=== PATIENT | female | born 1945 | race Caucasian/White ===

== ENCOUNTER 2019-09-08 07:51 | Outpatient (CLI) | payer MEDICARE ==
[2019-09-08] MEDS ORDERED: Iopamidol-370 76% 500 ML 1 ML ONE (09:14)
--- NOTE | 2019-09-08 10:28 | CT ---
CT THORAX WITH CONTRAST: DATE: 09/08/2019 HISTORY: 74-year-old female with ICD-10: "C 34.81 malignant neoplasm of overlapping sites of right bronchus an d lung" COMPARISON: 05/26/2019 CT from [facility] Prior report not available FINDINGS: Multiple mildly enlarged, mediastinal lymph nodes, some heavily calcified and others noncalcified. Th mark include noncalcified lymph nodes of 0.8 cm short axis dimension in the prevascular space, mildly partially calcified lymph node of 1 cm short axis dimension in the precarinal region, and part ially heavily calcified large lymph nodes of subcarinal region, 2.2 cm in AP dimension short axis. Partially heavily calcified enlarged right lymphadenopathy. Noncalcified moderate left hilar lymphade nopathy. These are all essentially unchanged. No thoracic aortic aneurysm or dissection. Incidentally, there is prominent calcified and noncalcifie d atherosclerotic plaque in the limited visualization of proximal abdominal aorta. No adrenal nodule. No cardiomegaly, pericardial effusion, pleural effusion, or pneumothorax. Broad region of right lateral, subpleural, chronic reticular pulmonary densities of right upper lobe and right lower lobe, unchanged. Suture line at anterior right hilum and adjacent right anterior bronchi. Postsurgical architectural distortion right anterior lung. Postsurgical changes of right rib cage. At the anterior segment of the right upper lobe, there was previously a partially solid and partially groundglass pulmonary nodule. The solid component measured approximately 0.6 x 0.7 cm previously, and this has not changed. It is surrounded by a halo of approximately 1.7 x 1.5 cm, also unchanged. ( Axial images 32 and 33 of 111, series 3). Now, there is a new approximately 0.7 x 0.4 cm noncalcified pulmonary nodule with spiculations radiat ing out from it (axial image 55 of 111, series 3; coronal image 30 of 61, series 5; sagittal image 75 of 90, series 6), located at central portion of right lower lung zone. No new suspicious nodules in the contralateral left lung. No consolidation. IMPRESSION: 1) postsurgical changes in the right lung consistent with right lobectomy, and associated architectur al distortion and scarring. 2) new small 7 mm stellate pulmonary nodule at right lower lung zone, which could be a new early prim ninfa lung cancer. 3) the other, complex pulmonary nodule in the anterior segment of right upper lobe is unchanged 4) mediastinal and hilar lymphadenopathy, including calcified and noncalcified lymph nodes. Unchanged .
== END 2019-09-08 07:52 | disposition home or self-care (01) ==
LOC: BICCT 07:51
PROVIDERS: ATTEND Internal Medicine Hematology & Oncology
DX: C34.81 Malignant neoplasm of overlapping sites of right bronchus and lung (principal); R91.8 Other nonspecific abnormal finding of lung field; R59.0 Localized enlarged lymph nodes; Z98.890 Other specified postprocedural states
CPT/HCPCS: 71260; 82565

== ENCOUNTER 2019-11-05 08:17 | Outpatient (CLI) | payer MEDICARE ==
--- NOTE | 2019-11-05 10:09 | CT ---
CT THORAX WITH CONTRAST: DATE: 11/05/2019 HISTORY: 74 year old female ICD-10: C 34.81: Malignant neoplasm of overlapping sites of right bronchus and brea g. Follow-up. COMPARISON: 09/08/2019 FINDINGS: Right lobectomy changes again noted, with architectural distortion and scarring. The previously described multiple mildly enlarged noncalcified and calcified mediastinal lymph nodes, and hilar lymph nodes, are unchanged. At the anterior segment of right upper lobe, the previously described partially solid and partially g roundglass pulmonary nodule, with halo, is unchanged. The previously described 0.7 x 0.4 cm spiculated pulmonary nodule located located at central portion of right lower lung zone has not significantly changed in size, but has become much less dense and is currently very faint and almost inconspicuous (sagittal image 78 of 99, series 6; axial image 58 o f 109, series 3; coronal image 34 of 79, series 5). All of the previously described findings, including subpleural right reticular densities, are again n oted. No new suspicious pulmonary nodule is identified. No pleural effusion or pneumothorax. Fatty liver. Fluid-filled distended stomach.. IMPRESSION: 1) the previously new small 7 mm stellate pulmonary nodule at right central lower lung zone has becom e much less dense and is currently very faint. 2) no other intrathoracic interval change. 3) the larger mixed solid and groundglass pulmonary nodule in anterior segment of right upper lobe, i s unchanged. 4) mediastinal and hilar calcified and noncalcified lymph nodes, are unchanged. 5) postsurgical changes in the right lung. 6) hepatic steatosis. 7) gastric distention.
[2019-11-05] MEDS ORDERED: Iopamidol-370 76% 500 ML 1 ML ONE (13:50)
== END 2019-11-05 08:18 | disposition home or self-care (01) ==
LOC: BICCT 08:17
PROVIDERS: ATTEND Internal Medicine Hematology & Oncology
DX: C34.81 Malignant neoplasm of overlapping sites of right bronchus and lung (principal); R91.1 Solitary pulmonary nodule; R91.8 Other nonspecific abnormal finding of lung field; K76.0 Fatty (change of) liver, not elsewhere classified; R14.0 Abdominal distension (gaseous); Z98.890 Other specified postprocedural states
CPT/HCPCS: 71260; 82565; Q9967

== ENCOUNTER 2020-01-25 09:45 | Outpatient (CLI) | payer MEDICARE ==
--- NOTE | 2020-01-25 11:11 | RAD ---
CHEST 2 VIEWS: Date; 01/25/2020 HISTORY: Dyspnea. COMPARISON: Radiograph from 2017. CT chest dated 11/05/2019. FINDINGS: Right upper lobe scar and suture is similar. No confluent air space consolidation, pneumothorax, or e ffusion. Dorsal column stimulator electrode is in place with right tip at the mid T9 vertebral body a nd the left tip at the inferior T10 vertebral body. Cardiac silhouette and mediastinal contours are similar. IMPRESSION: Postoperative findings with right upper lobe scar/suture. No acute intrathoracic abnormality. POS: HOME
== END 2020-01-25 09:46 | disposition home or self-care (01) ==
LOC: BICRAD 09:45
PROVIDERS: ATTEND Internal Medicine Critical Care Medicine
DX: R06.00 Dyspnea, unspecified (principal); Z96.89 Presence of other specified functional implants
CPT/HCPCS: 71046

== ENCOUNTER 2020-06-16 13:49 | Outpatient (CLI) | payer MEDICARE ==
[2020-06-16] MEDS ORDERED: Iopamidol 370 76% 100 ML VIAL ONE (14:50)
== END 2020-06-16 13:50 | disposition home or self-care (01) ==
LOC: BICCT 13:49
PROVIDERS: ATTEND Internal Medicine Hematology & Oncology
DX: C34.81 Malignant neoplasm of overlapping sites of right bronchus and lung (principal); R59.0 Localized enlarged lymph nodes; R91.1 Solitary pulmonary nodule; J98.4 Other disorders of lung
CPT/HCPCS: 71260; 82565; Q9967

== ENCOUNTER 2020-06-30 07:28 | Outpatient (CLI) | payer MEDICARE | END 2020-06-30 07:29 | disposition home or self-care (01) | LOC: PET 07:28 | PROVIDERS: ATTEND Internal Medicine Hematology & Oncology | DX: C34.90 Malignant neoplasm of unspecified part of unspecified bronchus or lung (principal); J98.4 Other disorders of lung | CPT/HCPCS: 78815; A9552 ==

== ENCOUNTER 2021-02-17 07:55 | Outpatient (CLI) | payer MEDICARE ==
[2021-02-17] MEDS ORDERED: Iopamidol-370 76% 500 ML 1 ML ONE (12:37)
== END 2021-02-17 07:56 | disposition home or self-care (01) ==
LOC: BICCT 07:55
PROVIDERS: ATTEND Radiology Radiation Oncology
DX: C34.11 Malignant neoplasm of upper lobe, right bronchus or lung (principal)
CPT/HCPCS: 71260; 82565; Q9967

== ENCOUNTER 2021-08-17 13:45 | Outpatient (CLI) | payer MEDICARE ==
[2021-08-18 07:43] LABS: Estimated GFR-MDRD - POC Greater than 90
== END 2021-08-17 13:46 | disposition home or self-care (01) ==
LOC: CT 13:45 → BICCT 13:46
PROVIDERS: ATTEND Radiology Radiation Oncology
DX: C34.11 Malignant neoplasm of upper lobe, right bronchus or lung (principal)
CPT/HCPCS: 71260; 82565

== ENCOUNTER 2022-02-14 08:35 | Outpatient (CLI) | payer MEDICARE ==
[2022-02-14] MEDS ORDERED: Iopamidol-370 76% 500 ML 1 ML ONE (11:11)
== END 2022-02-14 08:36 | disposition home or self-care (01) ==
LOC: BICCT 08:35
PROVIDERS: ATTEND Radiology Radiation Oncology
DX: C34.11 Malignant neoplasm of upper lobe, right bronchus or lung (principal)
CPT/HCPCS: 71260; 82565

== ENCOUNTER 2022-03-21 09:24 | Day surgery (SDC) | payer MEDICARE ==
[2022-03-20 16:24] VITALS: BMI 27.3
[2022-03-21] MEDS ORDERED: Sodium Chloride 0.9% 1,000 ML IV SCH (11:00)
[2022-03-21] MEDS ORDERED: Lidocaine 4% PF 5 ML AMP NEB SCH (11:00)
[2022-03-21] MEDS ORDERED: SUGAMMADEX SODIUM 200 MG/2 ML VIAL ONE (11:01)
[2022-03-21] MEDS ORDERED: Ondansetron PF 4 MG/2 ML Vial ONE (12:00)
[2022-03-21] MEDS ORDERED: Rocuronium Bromide 10 MG/ML (10ML VIAL) ONE (12:00)
[2022-03-21] MEDS ORDERED: Dexamethasone 20 MG/5 ML VIAL ONE (12:00)
[2022-03-21] MEDS ORDERED: PROPOFOL 200 MG/20 ML VIAL ONE (12:00)
[2022-03-21] MEDS ORDERED: Lidocaine 1% PF 5 ML VIAL ONE (12:00)
== END 2022-03-21 14:50 | disposition home or self-care (01) ==
LOC: SDC 09:24
PROVIDERS: ATTEND Internal Medicine
PROC: 0B9F8ZX Drainage of Right Lower Lung Lobe, Via Natural or Artificial Opening Endoscopic, Diagnostic (ICD-10-PCS; principal; 2022-03-21)
PROC: 0BD68ZX Extraction of Right Lower Lobe Bronchus, Via Natural or Artificial Opening Endoscopic, Diagnostic (ICD-10-PCS; 2022-03-21)
PROC: 07B74ZX Excision of Thorax Lymphatic, Percutaneous Endoscopic Approach, Diagnostic (ICD-10-PCS; 2022-03-21)
DX: C34.81 Malignant neoplasm of overlapping sites of right bronchus and lung (principal); C34.11 Malignant neoplasm of upper lobe, right bronchus or lung; R59.0 Localized enlarged lymph nodes; Z87.891 Personal history of nicotine dependence; Z79.84 Long term (current) use of oral hypoglycemic drugs; Z79.899 Other long term (current) drug therapy; Z88.1 Allergy status to other antibiotic agents; Z88.2 Allergy status to sulfonamides; Z88.8 Allergy status to other drugs, medicaments and biological substances; Z91.040 Latex allergy status; Z90.2 Acquired absence of lung [part of]
CPT/HCPCS: 88112; 88173; 88305; 88341; 88342; J1100; J2405; J2704; J7620

== ENCOUNTER → 2022-04-12 | Outpatient (CLI) | payer MEDICARE | LOC: PET 10:15 | PROVIDERS: ATTEND Radiology Radiation Oncology | DX: C34.11 Malignant neoplasm of upper lobe, right bronchus or lung (principal); C34.31 Malignant neoplasm of lower lobe, right bronchus or lung | CPT/HCPCS: 78815; A9552 ==

== ENCOUNTER 2022-04-27 08:29 | Day surgery (SDC) | payer MEDICARE ==
[2022-04-27 08:40] LABS: #Basophils 0.1 thou/uL (0.0-0.2); #Eosinphils 0.1 thou/uL (0.0-0.7); #Lymphocytes 2.4 thou/uL (1.20-3.40); #Monocytes 0.5 thou/uL (0.11-0.59); #Neutrophils 5.7 thou/uL (1.40-6.50); %Basophils 0.9 % (0.0-1.0); %Eosinophils 1.1 % (0.0-10.0); %Lymphocytes 27.5 % (21.0-51.0); %Monocytes 6.1 % (0.0-10.0); %Neutrophils 64.5 % (42.0-75.0); Hemoglobin 12.9 g/dL (12.0-16.0); Mean Corpuscular HGB CONC 32.7 g/dL (32.0-36.0); Mean Corpuscular Hemoglobin 29.7 pg (27.0-31.0); Mean Corpuscular Volume 90.9 fl (78.0-98.0); Mean Platelet Volume 7.7 fL (7.4-10.4); Platelet Count 227 10x3/uL (130-400); RBC Distribution Width 13.6 % (11.5-14.5); Red Blood Cell (RBC) Count 4.33 mill/uL (4.20-5.40); White Blood Cell (WBC) Count 8.8 10x3/uL (4.8-10.8)
[2022-04-27 08:50] LABS: INR-International Normal Ratio 0.9; Prothrombin Time 12.2 sec (12.0-14.7)
[2022-04-27 08:51] LABS: PTT 23.6 sec (22.9-36.1)
[2022-04-27 10:33] VITALS: BP 112/55; TEMP 98.6
== END 2022-04-27 12:45 | disposition home or self-care (01) ==
LOC: CT 08:29
PROVIDERS: ATTEND Radiology Radiation Oncology
PROC: 0BBF3ZX Excision of Right Lower Lung Lobe, Percutaneous Approach, Diagnostic (ICD-10-PCS; principal; 2022-04-27)
DX: C34.31 Malignant neoplasm of lower lobe, right bronchus or lung (principal); E11.9 Type 2 diabetes mellitus without complications; M06.9 Rheumatoid arthritis, unspecified; E78.00 Pure hypercholesterolemia, unspecified; F17.290 Nicotine dependence, other tobacco product, uncomplicated; Z86.16 Personal history of COVID-19; Z79.82 Long term (current) use of aspirin; Z79.84 Long term (current) use of oral hypoglycemic drugs; Z79.899 Other long term (current) drug therapy; Z88.1 Allergy status to other antibiotic agents; Z88.2 Allergy status to sulfonamides; Z88.6 Allergy status to analgesic agent; Z88.8 Allergy status to other drugs, medicaments and biological substances; Z90.2 Acquired absence of lung [part of]
CPT/HCPCS: 32408; 71045; 77012; 85025; 85610; 85730; 88305; 88341; 88342

== ENCOUNTER 2023-01-21 09:01 | Outpatient (CLI) | payer MEDICARE ==
[2023-01-21] MEDS ORDERED: Iopamidol 370 76% 100 ML VIAL ONE (09:26)
== END 2023-01-21 09:02 | disposition home or self-care (01) ==
LOC: CT 09:01
PROVIDERS: ATTEND Radiology Radiation Oncology
DX: C34.31 Malignant neoplasm of lower lobe, right bronchus or lung (principal); C34.11 Malignant neoplasm of upper lobe, right bronchus or lung; J90 Pleural effusion, not elsewhere classified; R59.0 Localized enlarged lymph nodes
CPT/HCPCS: 71260; 82565; Q9967

== ENCOUNTER 2023-05-21 16:09 | Outpatient (CLI) | payer MEDICARE | END 2023-05-21 16:10 | LOC: BICRAD 16:09 | PROVIDERS: ATTEND Family Medicine | DX: R05.9 Cough, unspecified (principal); J98.4 Other disorders of lung; Z98.890 Other specified postprocedural states | CPT/HCPCS: 71046 ==

== ENCOUNTER 2023-11-20 15:48 | Outpatient (CLI) | payer MEDICARE | END 2023-11-20 15:49 | disposition home or self-care (01) | LOC: BICRAD 15:48 | PROVIDERS: ATTEND Family Medicine | DX: R05.9 Cough, unspecified (principal) | CPT/HCPCS: 71046 ==

== ENCOUNTER 2023-12-24 10:13 | Outpatient (CLI) | payer MEDICARE ==
[2023-12-24] MEDS ORDERED: Iopamidol 370 76% 100 ML VIAL ONE (10:42)
== END 2023-12-24 10:14 | disposition home or self-care (01) ==
LOC: BICCT 10:13
PROVIDERS: ATTEND Otolaryngology Plastic Surgery within the Head & Neck
DX: J38.00 Paralysis of vocal cords and larynx, unspecified (principal); R59.0 Localized enlarged lymph nodes; S22.31XD Fracture of one rib, right side, subsequent encounter for fracture with routine healing; Z98.890 Other specified postprocedural states
CPT/HCPCS: 70491; 82565

== ENCOUNTER 2024-01-01 08:45 | Outpatient (CLI) | payer MEDICARE ==
[2024-01-01] MEDS ORDERED: Iopamidol 370 76% 100 ML VIAL ONE (09:10)
== END 2024-01-01 08:46 | disposition home or self-care (01) ==
LOC: BICCT 08:45
PROVIDERS: ATTEND Radiology Radiation Oncology
DX: C34.91 Malignant neoplasm of unspecified part of right bronchus or lung (principal); R05.9 Cough, unspecified; J98.4 Other disorders of lung; R59.0 Localized enlarged lymph nodes
CPT/HCPCS: 71046; 71260; Q9967

== ENCOUNTER 2024-01-22 11:00 | Outpatient (CLI) | payer MEDICARE | END 2024-01-22 11:01 | disposition home or self-care (01) | LOC: PET 11:00 | PROVIDERS: ATTEND Radiology Radiation Oncology | DX: C34.31 Malignant neoplasm of lower lobe, right bronchus or lung (principal); J38.01 Paralysis of vocal cords and larynx, unilateral; R59.0 Localized enlarged lymph nodes; R91.1 Solitary pulmonary nodule | CPT/HCPCS: 78815; A9552 ==

== ENCOUNTER 2024-01-31 11:07 | Day surgery (SDC) | payer MEDICARE ==
[2024-01-30 12:42] VITALS: BMI 24.0
[2024-01-31] MEDS ORDERED: Ipratropium/Albuterol 3 ML NEB ONE (12:17)
[2024-01-31] MEDS ORDERED: Lidocaine 4% PF 5 ML AMP ONE (12:17)
[2024-01-31] MEDS ORDERED: Lidocaine 1% MPF 2 ML VIAL ONE (12:18)
[2024-01-31] MEDS ORDERED: Dexamethasone 4 mg/ml Vial ONE ×2 (12:22→13:32)
[2024-01-31] MEDS ORDERED: PROPOFOL 20 ML ONE (12:22)
[2024-01-31] MEDS ORDERED: fentaNYL 50 mcg/mL 1 mL Vial ONE ×2 (12:22→13:35)
[2024-01-31] MEDS ORDERED: Ondansetron PF 4 MG/2 ML Vial ONE (12:22)
[2024-01-31] MEDS ORDERED: Lidocaine 1% PF 5 ML VIAL ONE (12:29)
[2024-01-31] MEDS ORDERED: SUGAMMADEX SODIUM 200 MG/2 ML VIAL ONE (14:43)
== END 2024-01-31 16:40 | disposition home or self-care (01) ==
LOC: SDC 11:07
PROVIDERS: ATTEND Internal Medicine
PROC: 07978ZX Drainage of Thorax Lymphatic, Via Natural or Artificial Opening Endoscopic Approach, Diagnostic (ICD-10-PCS; principal; 2024-01-31)
DX: C77.1 Secondary and unspecified malignant neoplasm of intrathoracic lymph nodes (principal); C34.11 Malignant neoplasm of upper lobe, right bronchus or lung; E78.5 Hyperlipidemia, unspecified; D64.9 Anemia, unspecified; H40.9 Unspecified glaucoma; H26.9 Unspecified cataract; Z90.710 Acquired absence of both cervix and uterus; Z98.51 Tubal ligation status; Z87.59 Personal history of other complications of pregnancy, childbirth and the puerperium; Z87.891 Personal history of nicotine dependence; Z98.890 Other specified postprocedural states; Z91.040 Latex allergy status; Z88.8 Allergy status to other drugs, medicaments and biological substances; Z88.1 Allergy status to other antibiotic agents; Z88.2 Allergy status to sulfonamides; Z79.1 Long term (current) use of non-steroidal anti-inflammatories (NSAID); Z79.84 Long term (current) use of oral hypoglycemic drugs; Z79.899 Other long term (current) drug therapy
CPT/HCPCS: 31653; 88333; 88334; J1100; J2405; J2704; J3010; 88112; 88173; 88341; 88342; J7620

== ENCOUNTER 2024-03-26 09:56 | Outpatient (CLI) | payer MEDICARE | END 2024-03-26 09:57 | disposition home or self-care (01) | LOC: SCSMRI 09:56 | PROVIDERS: ATTEND Internal Medicine Hematology & Oncology | DX: C34.81 Malignant neoplasm of overlapping sites of right bronchus and lung (principal) | CPT/HCPCS: 36415; 70553; 76376; 82565 ==